=== PATIENT | male | born 1965 | race Caucasian/White ===

== ENCOUNTER → 2018-10-15 | Outpatient (CLI) | payer SELFPAY ==
[~2018-10-15] MED LIST: DIABETA 2.5MG2.5 MG PO; GLUCOPHAGE XR500 M1 PO; LANTUS SOLOS100 U/ML SC; NORVASC 10MG10 MG PO; TEGRETOL 2200 MG/TA1 PO; ULTRAM 50MG TAB50 MG PO
== END ==
LOC: COL.RAD 15:19
DX: M54.5 Low back pain (principal); M25.559 Pain in unspecified hip

== ENCOUNTER 2018-11-07 14:44 | Emergency (ER) | payer SELFPAY ==
[~2018-11-07] VITALS: Ht 180.3 cm; Wt 72.7 kg
[2018-11-07 14:56] VITALS: TEMP 98.8
[2018-11-07 15:18] LABS: BASO % 0.6 % (0.0-2.0); EOS # 0.2 (0.0-0.7); EOS % 3.3 % (0-4.0); GRAN # 4.4 (1.4-6.5); GRAN % 67.8 % (42.2-75.2); HEMATOCRIT 39.6 % (42.0-52.0); HEMOGLOBIN 14.5 g/dl (13.5-18.0); LYMPH # 1.2 (1.2-3.4); LYMPH % 19.3 % (20.0-51.0); MEAN CELL VOLUME 91 fl (80.0-100.0); MEAN CORPUSCULAR HEMOGLOBIN 33 pg (27.0-31.0); MEAN CORPUSCULAR HGB CONC 37 g/dl (33.0-37.0); MEAN PLATELET VOLUME 11.4 fl (7.4-10.4); MONO # 0.6 (0.1-0.6); MONO % 8.7 % (1.7-9.3); PLATELET COUNT 66 K/mm3 (130-400); RED BLOOD COUNT 4.35 M/mm3 (4.20-5.60); REDCELL DISTRIBUTION WIDTH-CV 13.5 % (11.5-14.5)
[2018-11-07] MEDS ORDERED: GLUCOPHAGE500 MG/TAB PO (15:20)
[2018-11-07] MEDS ORDERED: NEURONTIN300 MG/CAP PO (15:21)
[2018-11-07 15:34] LABS: ALANINE AMINOTRANSFERASE 60 U/L (21-72); ALBUMIN 3.6 gm/dL (3.5-5.0); ALKALINE PHOSPHATASE 223 U/L (50-136); ANION GAP 9 mmol/L (7-16); AST,SGOT 67 U/L (15-37); BILIRUBIN,TOTAL 1.2 mg/dL (0.0-1.0); BLOOD UREA NITROGEN 13 mg/dL (9-20); CALCIUM 8.7 mg/dL (8.4-10.2); CARBON DIOXIDE 29 mmol/L (22-30); CHLORIDE 94 mmol/L (98-107); CREATININE, serum 0.82 (0.66-1.25); POTASSIUM 3.8 mmol/L (3.4-5.0); SODIUM 132 mmol/L (137-145); TOTAL PROTEIN 8.2 gm/dL (6.4-8.2)
[2018-11-07 15:36] LABS: ACETONE,SERUM NEGATIVE
[2018-11-07 15:39] LABS: GLUCOSE 406 mg/dL (74-106)
[2018-11-07] MEDS ORDERED: DOXYCYCLINE HY100 MG PO (17:18)
[2018-11-07 17:34] VITALS: BP 154/92; PULSE 76
== END 2018-11-07 17:36 | disposition home or self-care (01) ==
LOC: COL.ER 14:44
PROVIDERS: Emergency Medicine
DX: E11.65 Type 2 diabetes mellitus with hyperglycemia (principal); J20.9 Acute bronchitis, unspecified; F17.210 Nicotine dependence, cigarettes, uncomplicated; Z86.19 Personal history of other infectious and parasitic diseases; Z79.84 Long term (current) use of oral hypoglycemic drugs
CPT/HCPCS: J7030

== ENCOUNTER → 2020-03-22 | Outpatient (CLI) | payer MEDICAID ==
[~2020-03-22] MED LIST changes: +DOXYCYCLINE HY100 MG PO; +GLUCOPHAGE500 MG/TAB PO; +NEURONTIN300 MG/CAP PO
== END ==
LOC: COL.RAD 07:30
DX: K80.20 Calculus of gallbladder without cholecystitis without obstruction (principal); K82.8 Other specified diseases of gallbladder

== ENCOUNTER → 2020-05-06 | Outpatient (CLI) | payer MEDICAID | LOC: COL.RAD 05-04 08:30 | DX: Z01.812 Encounter for preprocedural laboratory examination (principal); K74.60 Unspecified cirrhosis of liver; B19.20 Unspecified viral hepatitis C without hepatic coma; F10.11 Alcohol abuse, in remission; K80.20 Calculus of gallbladder without cholecystitis without obstruction | CPT/HCPCS: Q9967 ==

== ENCOUNTER → 2020-09-07 | Outpatient (CLI) | payer MEDICAID | LOC: COL.CARD 10:09 | DX: R01.1 Cardiac murmur, unspecified (principal) ==

== ENCOUNTER → 2020-10-19 | Outpatient (CLI) | payer MEDICAID | LOC: COL.VAS 12:36 | DX: R10.11 Right upper quadrant pain (principal) ==

== ENCOUNTER 2022-08-09 10:59 | Emergency (ER) | payer MEDICAID ==
[~2022-08-09] VITALS: Ht 180.3 cm; Wt 77.3 kg
[2022-08-09 11:48] LABS: BASO # 0.1 K/mm3 (0.0-0.2); BASO % 0.8 % (0.0-2.0); EOS # 0.3 K/mm3 (0.0-0.7); EOS % 4.3 % (0.0-4.0); GRAN # 5.6 K/mm3 (1.4-6.5); GRAN % 70.7 % (42.2-75.2); HEMOGLOBIN 12.9 g/dl (13.5-18.0); LYMPH % 12.9 % (20.0-51.0); MEAN CELL VOLUME 90 fl (80.0-100.0); MEAN CORPUSCULAR HEMOGLOBIN 32 pg (27-31); MEAN CORPUSCULAR HGB CONC 35 g/dl (33.0-37.0); MEAN PLATELET VOLUME 10.9 fl (7.4-10.4); MONO # 0.9 K/mm3 (0.1-0.6); MONO % 10.9 % (1.7-9.3); PLATELET COUNT 104 K/mm3 (130-400); RED BLOOD COUNT 4.07 M/mm3 (4.20-5.60); REDCELL DISTRIBUTION WIDTH-CV 14.2 % (11.5-14.5)
[2022-08-09 11:55] LABS: HEMATOCRIT 36.6 % (42.0-52.0)
[2022-08-09 12:05] LABS: ALBUMIN 2.5 gm/dL (3.5-5.0); BILIRUBIN,TOTAL 1.2 mg/dL (0.2-1.2); CALCIUM 8.5 mg/dL (8.4-10.2); CREATININE, serum 0.88 mg/dL (0.72-1.25); POTASSIUM 4.2 mmol/L (3.5-4.5); TOTAL PROTEIN 6.4 gm/dL (6.2-8.1)
[2022-08-09 12:18] LABS: TROPONIN-I 0.011 ng/mL (0.00-0.033)
[2022-08-09 12:19] LABS: INR 1.1 (0.8-3.0); PROTHROMBIN TIME 12.7 SECONDS (9.7-12.8)
[2022-08-09 13:45] VITALS: BP 130/118; PULSE 74; TEMP 97.6
[2022-08-09] MEDS ORDERED: ALDACTONE 25MG25 M1 PO (14:04)
[2022-08-09] MEDS ORDERED: LASIX 20MG TABL20 MG PO (14:04)
== END 2022-08-09 14:53 | disposition home or self-care (01) ==
LOC: COL.ER 10:59
PROVIDERS: Family Medicine
DX: K70.31 Alcoholic cirrhosis of liver with ascites (principal); D64.9 Anemia, unspecified; N50.89 Other specified disorders of the male genital organs; R79.1 Abnormal coagulation profile; F17.200 Nicotine dependence, unspecified, uncomplicated; Z28.310 Unvaccinated for COVID-19
CPT/HCPCS: J2270; Q9967